=== PATIENT | female | born 1960 | race African-American/Black ===

== ENCOUNTER 2021-07-18 04:41 | Emergency (ER) | payer MEDICAID, OTHER ==
[~2021-07-18] VITALS: Ht 165.1 cm; Wt 114.0 kg
[2021-07-18] MEDS ORDERED: HYDROCODONE/ACETAMINOPHEN 5/325MG TABLET PO STA (05:48)
[2021-07-18] MEDS ORDERED: IBUP-2030 MT (10:07)
[2021-07-18 10:41] VITALS: BP 142/70
== END 2021-07-18 10:54 | disposition home or self-care (01) ==
LOC: ER 04:41
DX: S20.212A Contusion of left front wall of thorax, initial encounter (principal); F17.200 Nicotine dependence, unspecified, uncomplicated; I10 Essential (primary) hypertension; Z98.890 Other specified postprocedural states; W18.30XA Fall on same level, unspecified, initial encounter; Y93.89 Activity, other specified; Y92.89 Other specified places as the place of occurrence of the external cause; Y99.8 Other external cause status
CPT/HCPCS: 71101; 99285